=== PATIENT | female | born 1980 | race African-American/Black ===

== ENCOUNTER 2017-03-16 16:48 | Emergency (ER) | payer MEDICAID ==
[~2017-03-16] VITALS: Ht 167.6 cm; Wt 67.0 kg
[2017-03-16 16:50] VITALS: BP 123/87
[2017-03-16] MEDS ORDERED: LORA-250 PO (16:52)
== END 2017-03-16 19:25 | disposition left against medical advice (07) ==
LOC: ER 16:55
DX: Z00.8 Encounter for other general examination (principal); Z53.21 Procedure and treatment not carried out due to patient leaving prior to being seen by health care provider